=== PATIENT | male | born 1985 | race Caucasian/White ===

== ENCOUNTER 2019-06-10 08:41 | Emergency (ER) | payer OTHER ==
[~2019-06-10] VITALS: Ht 175.3 cm; Wt 79.5 kg
[2019-06-10 09:14] VITALS: BP 121/72
[2019-06-10] MEDS ORDERED: predniSONE 20 mg tablet PO ONE (09:45)
[2019-06-10] MEDS ORDERED: PRED20TA PO (09:45)
== END 2019-06-10 10:12 | disposition home or self-care (01) ==
LOC: ER 08:42
DX: L23.7 Allergic contact dermatitis due to plants, except food (principal); Z79.899 Other long term (current) drug therapy
CPT/HCPCS: 99283; J7512